=== PATIENT | male | born 1995 | race Caucasian/White ===

== ENCOUNTER 2023-02-14 18:47 | Emergency (ER) | payer MEDICAID, SELFPAY ==
[2023-02-14 18:54] VITALS: BP 159/77; PULSE 69; RESP 16; TEMP 36.7; O2SAT 98; BMI 32.3
[2023-02-14] MEDS: tetanus-dipt-pertussis 0.5 mL SDV IM (19:06)
--- NOTE | 2023-02-14 19:07 | W.ED.WOUNDLC ---
HPI - Wound/Laceration General: Chief Complaint: Wound/Laceration Stated Complaint: Rt Finger Injury Time Seen by Provider: 02/14/23 18:58 Source: patient Mode of arrival: ambulatory Limitations: no limitations History of Present Illness: 28-year-old male states that he was playing with his pocket knife at closed and had a scissor on it and lacerated the distal portion of his index finger on the right. States happened just prior to arrival does have a superficial laceration over the index finger is full range of motion denies any pain he is up-to-date on his tetanus. Associated symptoms: Denies chills, fever(s), nausea or vomiting Review of Systems Const: Denies: fever(s), chills, body aches or change in appetite ENMT: Denies: throat pain or dental pain Card: Denies: chest pain Resp: Denies: dyspnea GI: Denies: abdominal pain, nausea, vomiting or diarrhea Musc: Denies: neck pain or back pain Skin/Breast: Denies: rash Neuro: Denies: headache(s) Physical Exam Const: COMMON NORMALS: no acute distress, patient oriented x3 and healthy appearing HENMT: COMMON NORMALS: normocephalic and atraumatic HEAD & SCALP: normocephalic and atraumatic Neck/C-Spine: COMMON NORMALS: full ROM Chest: COMMONS NORMALS: normal inspection of the chest Resp: COMMON NORMALS: normal respiratory effort Extremity: COMMON NORMALS: full ROM Neuro: COMMON NORMALS: patient oriented x3, moves all extremities and no focal motor deficits Psych: COMMON NORMALS: mental status grossly normal, Normal thought process present and cooperative THOUGHT PROCESS: Normal thought process present Skin: COMMON NORMALS: no rashes or lesions noted NARRATIVE SKIN EXAM: 1 cm superficial laceration over dorsum of distal right index finger has full range of motion no bleeding at this time GENERAL SKIN EXAM: no rashes or lesions noted Procedures Laceration Laceration 1: Site: hand Side (If applicable): right Size (cm): 2 Description: linear Depth: simple, single layer Pre-repair: wound explored, irrigated extensively and deep structures intact Skin layer closed with: other (dermabond) Course Vital Signs: Vital signs: Vital Signs Temperature 98.0 F 02/14/23 18:54 Pulse Rate 69 02/14/23 18:54 Respiratory Rate 16 02/14/23 18:54 Blood Pressure 159/77 02/14/23 18:54 Pulse Oximetry 98 02/14/23 18:54 MDM - Wound/Laceration Medical Decision Making Patient presents here with laceration to right distal index finger did Dermabond it we will place in a finger splint as he does not open it back up did update his tetanus he is well-appearing here no deep structure injuries return if worsening. Medical Records I reviewed the patient's medical records. No radiology studies performed this visit Discharge Plan Discharge Patient Disposition: Home Clinical Impression: Laceration Condition: Stable Discharge Orders: Discharge ED (Routine); Ordered 02/14/23 Ordered By: Socorro Meier Discharge Diet: Advance as tolerated Discharge Activity: Resume usual activity Patient Instructions: Laceration (ED), Skin Adhesive Care (ED) Coding Level of Care Code ED [employer] Hel[employer] for Félix Knight
[2023-02-14 19:12] VITALS: BP 159/77; PULSE 69; RESP 16; TEMP 36.7; O2SAT 98
== END 2023-02-14 19:13 | disposition home or self-care (01) ==
PROVIDERS: Emergency Provider Emergency Medicine
DX: S61.210A Laceration without foreign body of right index finger without damage to nail, initial encounter (principal); W26.0XXA Contact with knife, initial encounter; Z23 Encounter for immunization
CPT/HCPCS: 12001; 90471; 90715; 99282